=== PATIENT | female | born 1940 | race African-American/Black ===

== ENCOUNTER 2019-06-09 12:06 | Inpatient (IN) | payer OTHER ==
[~2019-06-09] VITALS: Ht 162.6 cm; Wt 83.9 kg
[~2019-06-09 12:06] MED LIST: ALLO100T PO; AMLO5TAB4 PO; ATOR80TA PO; CHOL20004 PO; CLON0.1T PO; CLOP75TA4 PO; COR25 PO; FURO-151 PO; LEVO75TA PO; LINA5TAB PO; LOSA100T32 PO; MECL-109 PO; METF-416 PO; NITR0.4T49 SL; OMEP20TA2 PO; POTA20TA12 PO
[2019-06-09] MEDS ORDERED: ASPIRIN 81MG TABLET PO ONE (16:15)
[2019-06-09 16:57] LABS: CHLORIDE 103 mEq/L (98-107)
[2019-06-09 16:58] LABS: BASOPHILS % 1.4 % (0.0-2.0); EOSINOPHILS % 1.8 % (0.0-5.0); HEMATOCRIT. 37.2 % (36.0-48.0); HEMOGLOBIN. 12.3 g/dL (12.0-16.0); LYMPHOCYTES % 25.2 % (20.0-50.0); MEAN CORPUSCULAR HEMOGLOBIN 28.5 pg (28.0-32.0); MEAN CORPUSCULAR VOLUME 86.1 fL (81.0-99.0); MEAN PLATELET VOLUME 7.9 fl (7.4-10.4); MONOCYTES % 9.2 % (2.0-8.0); NEUTROPHILS % 62.4 % (40.0-76.0); PLATELET 220 x1000/uL (130-400); RED BLOOD CELL COUNT 4.31 mill/uL (4.2-5.4); RED CELL DISTRIBUTION WIDTH 26.6 % (11.6-14.6)
[2019-06-09 17:01] LABS: D-DIMER 0.95 mg/L FEU (<0.50); PARTIAL THROMBOPLASTIN TIME 28.9 sec (23.4-31.0); PROTHROMBIN TIME 10.7 sec (9.6-11.0)
[2019-06-09 17:51] LABS: PLATELET ESTIMATE NORMAL
[2019-06-10] VITALS (8 sets, daily range): BP systolic 133–163; BP diastolic 62–95
[2019-06-10] MEDS ORDERED: DEXTROSE 50% WATER 50ML SYRINGE IV PRN (00:30)
[2019-06-10] MEDS ORDERED: ALPRAZOLAM 0.25 MG TABLET PO PRN (00:45)
[2019-06-10] MEDS ORDERED: NITROGLYCERIN 0.4MG TABLET SL SL PRN (00:45)
[2019-06-10] MEDS ORDERED: MECLIZINE 25MG TABLET PO PRN (00:45)
[2019-06-10] MEDS ORDERED: OMEP20CA5 PO (00:49)
[2019-06-10] MEDS ORDERED: GLIM2TAB2 PO (00:49)
[2019-06-10] MEDS ORDERED: ALPR-339 PO (00:49)
[2019-06-10 03:09] LABS: CREATINE KINASE 184 IU/L (26-192)
[2019-06-10] MEDS: ACETAMINOPHEN 325MG TABLET PO PRN ×2 (05:51→20:20)
[2019-06-10] MEDS: INSULIN LISPRO 100 UNITS/ML SUBCUT SCH ×4 (06:28→20:21)
[2019-06-10] MEDS: BLOOD SUGAR DIAGNOSTIC STRIP TEST SCH ×4 (06:28→20:21)
[2019-06-10] MEDS: OMEPRAZOLE 20MG CAPSULE EXTENDED RELEASE PO SCH (06:28)
[2019-06-10] MEDS: LEVOTHYROXINE SODIUM 88MCG TABLET PO SCH (06:28)
[2019-06-10] MEDS ORDERED: CLOPIDOGREL 75MG TABLET PO SCH (09:00)
[2019-06-10] MEDS: GLIMEPIRIDE 2MG TABLET PO SCH (09:16)
[2019-06-10] MEDS: FUROSEMIDE 40MG TABLET PO SCH ×2 (09:16→17:30)
[2019-06-10] MEDS: CLOPIDOGREL 75MG TABLET PO SCH (09:16)
[2019-06-10] MEDS: POTASSIUM CHLORIDE 20MEQ TABLET SR PO SCH (09:16)
[2019-06-10] MEDS: AMLODIPINE 5MG TABLET PO SCH (09:17)
[2019-06-10] MEDS: LINAGLIPTIN 5MG TABLET PO SCH (09:17)
[2019-06-10] MEDS: CARVEDILOL 12.5MG TABLET PO SCH ×2 (09:17→20:19)
[2019-06-10] MEDS: ALLOPURINOL 100 MG TABLET PO SCH ×2 (09:17→17:30)
[2019-06-10 10:36] LABS: BASOPHILS % 0.8 % (0.0-2.0); EOSINOPHILS % 2.3 % (0.0-5.0); HEMATOCRIT. 36.9 % (36.0-48.0); HEMOGLOBIN. 12.1 g/dL (12.0-16.0); LYMPHOCYTES % 27.2 % (20.0-50.0); MEAN CORPUSCULAR HEMOGLOBIN 28.3 pg (28.0-32.0); MEAN CORPUSCULAR VOLUME 86.4 fL (81.0-99.0); NEUTROPHILS % 59.7 % (40.0-76.0); PLATELET 215 x1000/uL (130-400); RED BLOOD CELL COUNT 4.27 mill/uL (4.2-5.4); RED CELL DISTRIBUTION WIDTH 27.2 % (11.6-14.6)
[2019-06-10 11:35] LABS: T4 FREE 1.32 ng/dL (0.76-1.46)
[2019-06-10 11:44] LABS: CREATINE KINASE MB FRACTION 2.4 ng/mL (0.5-3.6)
[2019-06-10 12:32] LABS: CREATINE KINASE 261 IU/L (26-192)
[2019-06-10] MEDS: SODIUM CHLORIDE 0.45% 1,000 ML IV SCH (13:15)
[2019-06-10] MEDS ORDERED: CLONIDINE 0.1MG TABLET PO PRN (14:15)
[2019-06-10] MEDS ORDERED: ATORVASTATIN CALCIUM 40MG TABLET PO SCH (21:00)
[2019-06-11] VITALS: BP 115/61
[2019-06-11 04:00] VITALS: BP 146/64
[2019-06-11] MEDS: INSULIN LISPRO 100 UNITS/ML SUBCUT SCH ×3 (06:15→17:40)
[2019-06-11] MEDS: BLOOD SUGAR DIAGNOSTIC STRIP TEST SCH ×3 (06:15→17:10)
[2019-06-11] MEDS: OMEPRAZOLE 20MG CAPSULE EXTENDED RELEASE PO SCH (06:45)
[2019-06-11] MEDS: LEVOTHYROXINE SODIUM 88MCG TABLET PO SCH (06:45)
[2019-06-11 06:54] LABS: BASOPHILS % 1.2 % (0.0-2.0); EOSINOPHILS % 1.9 % (0.0-5.0); HEMATOCRIT. 34.5 % (36.0-48.0); HEMOGLOBIN. 11.4 g/dL (12.0-16.0); LYMPHOCYTES % 27.6 % (20.0-50.0); MEAN CORPUSCULAR HEMOGLOBIN 28.6 pg (28.0-32.0); MEAN CORPUSCULAR VOLUME 86.7 fL (81.0-99.0); MEAN PLATELET VOLUME 7.6 fl (7.4-10.4); MONOCYTES % 12.9 % (2.0-8.0); NEUTROPHILS % 56.4 % (40.0-76.0); PLATELET 191 x1000/uL (130-400); RED BLOOD CELL COUNT 3.98 mill/uL (4.2-5.4)
[2019-06-11 07:08] LABS: CHLORIDE 108 mEq/L (98-107)
[2019-06-11 07:41] LABS: CREATINE KINASE 240 IU/L (26-192); CREATINE KINASE MB FRACTION 1.8 ng/mL (0.5-3.6); HDL CHOLESTEROL 45 mg/dL (40-59)
[2019-06-11 07:43] LABS: LDL CHOLESTEROL 115 mg/dL (5-100)
[2019-06-11 08:00] VITALS: BP 135/63
[2019-06-11] MEDS: GLIMEPIRIDE 2MG TABLET PO SCH (08:30)
[2019-06-11] MEDS ORDERED: ASPIRIN 81MG EC TABLET PO SCH (09:00)
[2019-06-11] MEDS: ALLOPURINOL 100 MG TABLET PO SCH ×2 (09:04→16:51)
[2019-06-11] MEDS: FUROSEMIDE 40MG TABLET PO SCH ×2 (09:06→16:51)
[2019-06-11] MEDS: POTASSIUM CHLORIDE 20MEQ TABLET SR PO SCH (09:06)
[2019-06-11] MEDS: CLOPIDOGREL 75MG TABLET PO SCH (09:06)
[2019-06-11] MEDS: CARVEDILOL 12.5MG TABLET PO SCH (09:06)
[2019-06-11] MEDS: AMLODIPINE 5MG TABLET PO SCH (09:07)
[2019-06-11] MEDS: LINAGLIPTIN 5MG TABLET PO SCH (09:07)
[2019-06-11] MEDS: SODIUM CHLORIDE 0.45% 1,000 ML IV SCH (13:28)
[2019-06-11 16:00] VITALS: BP 128/63
[2019-06-11 17:23] VITALS: BP 128/63
[2019-06-12] MEDS ORDERED: FAMOTIDINE 20MG TABLET PO SCH (07:10)
== END 2019-06-11 18:05 | disposition home or self-care (01) | DRG 206 ==
LOC: ER 12:06 → 8WST 19:12 → ENRESERV 22:09 → 8WST 23:45
PROVIDERS: ADMIT Internal Medicine; ATTEND Internal Medicine
DX: M94.0 Chondrocostal junction syndrome [Tietze] (principal); I42.0 Dilated cardiomyopathy; N17.9 Acute kidney failure, unspecified; I25.10 Atherosclerotic heart disease of native coronary artery without angina pectoris; E11.22 Type 2 diabetes mellitus with diabetic chronic kidney disease; I12.9 Hypertensive chronic kidney disease with stage 1 through stage 4 chronic kidney disease, or unspecified chronic kidney disease; N18.9 Chronic kidney disease, unspecified; E78.00 Pure hypercholesterolemia, unspecified; M10.9 Gout, unspecified; K21.9 Gastro-esophageal reflux disease without esophagitis; E03.9 Hypothyroidism, unspecified; E78.5 Hyperlipidemia, unspecified; I25.5 Ischemic cardiomyopathy; Z79.899 Other long term (current) drug therapy; Z95.810 Presence of automatic (implantable) cardiac defibrillator; Z79.84 Long term (current) use of oral hypoglycemic drugs
CPT/HCPCS: 36415; 71045; 78582; 80048; 80061; 82550; 82553; 82962; 83735; 83880; 84439; 84443; 84484; 85379; 93005; 93306; 93970; 99285; A9558; J1815

== ENCOUNTER 2021-12-07 04:58 | Inpatient (IN) | payer OTHER ==
[~2021-12-07] VITALS: Ht 162.6 cm; Wt 78.9 kg
[~2021-12-07 04:58] MED LIST changes: +ALPR-339 PO; +CLOP-31 PO; -CLOP75TA4 PO; +GLIM2TAB30 PO; -MECL-109 PO; +MECL-159 PO; +OMEP20CA14 PO
[2021-12-07 06:24] LABS: BASOPHILS % 0.6 % (0.0-2.0); EOSINOPHILS % 0.5 % (0.0-5.0); HEMATOCRIT. 35.4 % (36.0-48.0); HEMOGLOBIN. 11.9 g/dL (12.0-16.0); LYMPHOCYTES % 13.1 % (20.0-50.0); MEAN CORPUSCULAR HEMOGLOBIN 31.6 pg (28.0-32.0); MEAN CORPUSCULAR VOLUME 94.4 fL (81.0-99.0); MEAN PLATELET VOLUME 8.1 fl (7.4-10.4); MONOCYTES % 13.2 % (2.0-8.0); NEUTROPHILS % 72.6 % (40.0-76.0); PLATELET 186 x1000/uL (130-400); RED BLOOD CELL COUNT 3.75 mill/uL (4.2-5.4); RED CELL DISTRIBUTION WIDTH 15.1 % (11.6-14.6)
[2021-12-07 08:06] LABS: CHLORIDE 109 mEq/L (98-107)
[2021-12-07 08:43] LABS: CLARITY URINE CLEAR (CLEAR); COLOR URINE YELLOW (YELLOW); KETONES URINE TRACE (NEGATIVE); LEUKOCYTE ESTERASE URINE NEGATIVE (NEGATIVE); NITRITE URINE NEGATIVE (NEGATIVE); OCCULT BLOOD URINE 2+ (NEGATIVE); PROTEIN URINE 3+ (NEGATIVE); SPECIFIC GRAVITY URINE 1.032 (1.005-1.030)
[2021-12-07] MEDS ORDERED: ENOXAPARIN 60MG/0.6ML SYR SUBCUT ONE (09:15)
[2021-12-07] MEDS ORDERED: ASPIRIN 325MG EC TABLET PO ONE (09:15)
[2021-12-07 15:10] VITALS: BP 154/62
[2021-12-07 15:13] VITALS: BP 154/62
[2021-12-07] MEDS ORDERED: ENOXAPARIN 40MG/0.4ML SYR SUBCUT SCH (16:00)
[2021-12-07] MEDS ORDERED: ACETAMINOPHEN 325MG TABLET PO PRN (16:00)
[2021-12-07] MEDS ORDERED: LEVOFLOXACIN 500MG PREMIX 100 ML IV SCH (16:00)
[2021-12-07] MEDS ORDERED: LEVOFLOXACIN 750MG PREMIX 150 ML IV NR (17:00)
[2021-12-07] MEDS: PREDNISONE 20MG TABLET PO SCH (18:17)
[2021-12-07] MEDS: ENOXAPARIN 30MG/0.3ML SYR SUBCUT SCH (18:19)
[2021-12-07 20:00] VITALS: BP 167/75
[2021-12-07] MEDS ORDERED: CLONIDINE 0.1MG TABLET PO PRN (20:45)
[2021-12-07] MEDS: IPRATROPIUM/ALBUTEROL 0.5-3(2.5)MG/3ML NEB HHN PRN (21:31)
[2021-12-08] VITALS: BP 161/70
[2021-12-08] MEDS ORDERED: CLONIDINE 0.1MG TABLET PO SCH (01:30)
[2021-12-08] MEDS ORDERED: CLONIDINE 0.1MG TABLET PO PRN (02:45)
[2021-12-08 03:57] VITALS: BP 141/61
[2021-12-08 07:41] LABS: HEMATOCRIT. 31.5 % (36.0-48.0); HEMOGLOBIN. 10.6 g/dL (12.0-16.0); MEAN CORPUSCULAR HEMOGLOBIN 31.9 pg (28.0-32.0); MEAN CORPUSCULAR VOLUME 94.8 fL (81.0-99.0); MEAN PLATELET VOLUME 8.3 fl (7.4-10.4); PLATELET 186 x1000/uL (130-400); RED BLOOD CELL COUNT 3.32 mill/uL (4.2-5.4); RED CELL DISTRIBUTION WIDTH 14.6 % (11.6-14.6)
[2021-12-08 08:00] VITALS: BP 154/56
[2021-12-08] MEDS ORDERED: DEXTROSE 50% WATER 50ML SYRINGE IV PRN (08:45)
[2021-12-08] MEDS: CLOPIDOGREL 75MG TABLET PO SCH (09:44)
[2021-12-08] MEDS: PREDNISONE 20MG TABLET PO SCH (09:44)
[2021-12-08] MEDS: IPRATROPIUM/ALBUTEROL 0.5-3(2.5)MG/3ML NEB HHN PRN (10:00)
[2021-12-08 12:00] VITALS: BP 131/59
[2021-12-08] MEDS: BLOOD SUGAR DIAGNOSTIC STRIP TEST SCH ×3 (12:17→20:27)
[2021-12-08] MEDS: FUROSEMIDE 40MG/4ML VIAL IVP SCH (12:28)
[2021-12-08] MEDS: INSULIN LISPRO 100 UNITS/ML SUBCUT SCH ×3 (12:38→20:27)
[2021-12-08] MEDS ORDERED: GUAIFENESIN 200MG/10ML SUGAR FREE UDC PO PRN (14:30)
[2021-12-08 16:00] VITALS: BP 147/61
[2021-12-08] MEDS: ENOXAPARIN 30MG/0.3ML SYR SUBCUT SCH (17:38)
[2021-12-08 20:00] VITALS: BP 163/72
[2021-12-08] MEDS: CARVEDILOL 12.5MG TABLET PO SCH (20:26)
[2021-12-08] MEDS ORDERED: ATORVASTATIN CALCIUM 40MG TABLET PO SCH (21:00)
[2021-12-09] VITALS: BP 127/61
[2021-12-09] MEDS: IPRATROPIUM/ALBUTEROL 0.5-3(2.5)MG/3ML NEB HHN PRN (00:49)
[2021-12-09 04:00] VITALS: BP 130/52
[2021-12-09] MEDS: BLOOD SUGAR DIAGNOSTIC STRIP TEST SCH ×3 (06:24→17:32)
[2021-12-09 08:12] VITALS: BP 148/60
[2021-12-09] MEDS: INSULIN LISPRO 100 UNITS/ML SUBCUT SCH ×3 (08:32→17:38)
[2021-12-09] MEDS: CLOPIDOGREL 75MG TABLET PO SCH (08:33)
[2021-12-09] MEDS: FUROSEMIDE 40MG/4ML VIAL IVP SCH (08:33)
[2021-12-09] MEDS: PREDNISONE 20MG TABLET PO SCH (08:34)
[2021-12-09] MEDS: CARVEDILOL 12.5MG TABLET PO SCH (08:39)
[2021-12-09] MEDS ORDERED: AMLODIPINE 5MG TABLET PO SCH (09:00)
[2021-12-09] MEDS ORDERED: LEVOFLOXACIN 750MG PREMIX 150 ML IV SCH (11:00)
[2021-12-09 12:10] VITALS: BP 128/68
[2021-12-09 14:42] LABS: PLATELET ESTIMATE NORMAL
[2021-12-09 16:30] VITALS: BP 148/66
[2021-12-09] MEDS: ENOXAPARIN 30MG/0.3ML SYR SUBCUT SCH (17:32)
[2021-12-09 18:01] VITALS: BP 148/66
[2021-12-09] MEDS ORDERED: P20 MT (18:10)
[2021-12-09] MEDS ORDERED: LEVO500T89 MT (18:10)
[2021-12-10] MEDS ORDERED: ERGOCALCIFEROL 50000UNITS CAPSULE PO SCH (09:00)
== END 2021-12-09 19:00 | disposition home or self-care (01) | DRG 193 ==
LOC: ER 04:58 → 6WST 09:09 → EDBEDREQ 10:01 → ENRESERV 12:29
PROVIDERS: ADMIT Internal Medicine; ATTEND Internal Medicine
DX: J18.9 Pneumonia, unspecified organism (principal); I50.23 Acute on chronic systolic (congestive) heart failure; I13.0 Hypertensive heart and chronic kidney disease with heart failure and stage 1 through stage 4 chronic kidney disease, or unspecified chronic kidney disease; I42.0 Dilated cardiomyopathy; E11.22 Type 2 diabetes mellitus with diabetic chronic kidney disease; I25.10 Atherosclerotic heart disease of native coronary artery without angina pectoris; E03.9 Hypothyroidism, unspecified; N18.9 Chronic kidney disease, unspecified; D64.9 Anemia, unspecified; E78.5 Hyperlipidemia, unspecified; R06.03 Acute respiratory distress; K21.9 Gastro-esophageal reflux disease without esophagitis; I25.5 Ischemic cardiomyopathy; I27.20 Pulmonary hypertension, unspecified; J40 Bronchitis, not specified as acute or chronic; Z79.84 Long term (current) use of oral hypoglycemic drugs; Z79.899 Other long term (current) drug therapy; Z95.810 Presence of automatic (implantable) cardiac defibrillator; I25.2 Old myocardial infarction
CPT/HCPCS: 36415; 71045; 80048; 80053; 81003; 82962; 83036; 83735; 83880; 84443; 84484; 85025; 93005; 93306; 93880; 93970; 94640; 99291; J1650; J1815; J1940; J1956; J7512

== ENCOUNTER 2023-03-18 11:55 | Emergency (ER) | payer MEDICARE, OTHER ==
[~2023-03-18] VITALS: Ht 162.6 cm; Wt 58.0 kg
[~2023-03-18 11:55] MED LIST changes: +LEVO-65 MT; -LOSA100T32 PO; +LOSA100T33 PO; -OMEP20TA2 PO; +OMEP20TA23 PO; +P20 MT; +POTA-194 PO; -POTA20TA12 PO
[2023-03-18 12:05] VITALS: BP 146/72; PULSE 63; RESP 20; TEMP 98.8; O2SAT 97
[2023-03-18] MEDS ORDERED: LIDO700A15 TP (13:12)
[2023-03-18] MEDS ORDERED: NAPR-1176 MT (13:12)
== END 2023-03-18 15:11 | disposition home or self-care (01) ==
LOC: ER 11:55
DX: M54.41 Lumbago with sciatica, right side (principal); I11.0 Hypertensive heart disease with heart failure; I50.9 Heart failure, unspecified; E11.9 Type 2 diabetes mellitus without complications; Z90.710 Acquired absence of both cervix and uterus; Z79.899 Other long term (current) drug therapy
CPT/HCPCS: 99283

== ENCOUNTER 2023-04-07 00:50 | Emergency (ER) | payer OTHER ==
[~2023-04-07] VITALS: Ht 170.2 cm; Wt 65.0 kg
[~2023-04-07 00:50] MED LIST changes: +LIDO700A15 TP; +NAPR-1176 MT
[2023-04-07 00:56] VITALS: O2SAT 98
[2023-04-07] MEDS ORDERED: ACETAMINOPHEN 325MG TABLET PO ONE (01:00)
[2023-04-07] MEDS ORDERED: ONDANSETRON HCL 4MG/2ML INJ IV ONE (01:00)
[2023-04-07] MEDS ORDERED: MECLIZINE 25MG TABLET PO ONE (01:00)
[2023-04-07 01:18] LABS: CHLORIDE 106 mEq/L (98-107); INDEX HEMOLYSI 1 (1-3); INDEX ICTERIC 1 (1-4); INDEX LIPEMIC 1 (1-3); POTASSIUM 3.5 mEq/L (3.5-5.1); SODIUM 137 mEq/L (136-145)
[2023-04-07 01:34] LABS: ALANINE AMINOTRANSFERASE 60 IU/L (13-61); ALBUMIN 3.6 g/dL (3.4-5.0); ASPARTATE AMINOTRANSFERASE 33 IU/L (15-37); BILIRUBIN TOTAL 0.4 mg/dL (0.1-1.0); CALCIUM 9.5 mg/dL (8.5-10.1); CARBON DIOXIDE 27 mEq/L (21-32); CREATININE 1.6 mg/dL (0.6-1.3); ETHANOL BLOOD < 10 mg/dL (-10); GLUCOSE 282 mg/dL (70-105); NT PRO B-TYPE NATRIURETIC PEP 2281 pg/mL (5-125); PROTEIN TOTAL 7.8 g/dL (6.0-8.3); UREA NITROGEN BLOOD 22 mg/dL (7-21)
[2023-04-07 01:35] LABS: BASOPHILS % 0.7 % (0.0-2.0); EOSINOPHILS % 0.3 % (0.0-5.0); HEMATOCRIT. 39.8 % (36.0-48.0); HEMOGLOBIN. 13.1 g/dL (12.0-16.0); LYMPHOCYTES % 16.6 % (20.0-50.0); MEAN CORPUSCULAR HEMOGLOBIN 32.8 pg (28.0-32.0); MEAN CORPUSCULAR HGB CONC 32.8 g/dL (31.0-37.0); MEAN PLATELET VOLUME 7.6 fl (7.4-10.4); MONOCYTES % 6.5 % (2.0-8.0); NEUTROPHILS % 75.9 % (40.0-76.0); PLATELET 195 x1000/uL (130-400); RED BLOOD CELL COUNT 3.98 mill/uL (4.2-5.4); RED CELL DISTRIBUTION WIDTH 15.2 % (11.6-14.6); WHITE BLOOD COUNT 4.5 x1000/uL (4.5-11.0)
[2023-04-07] MEDS ORDERED: CLONIDINE 0.1MG TABLET PO ONE (02:30)
[2023-04-07] MEDS ORDERED: ONDA4TAB50 MT (06:01)
[2023-04-07] MEDS ORDERED: MECL-217 MT (06:01)
[2023-04-07 06:15] VITALS: BP 152/66; PULSE 65; RESP 12; TEMP 98.2
== END 2023-04-07 06:26 | disposition home or self-care (01) ==
LOC: ER 01:02
DX: R42 Dizziness and giddiness (principal); I11.0 Hypertensive heart disease with heart failure; I50.9 Heart failure, unspecified; E11.9 Type 2 diabetes mellitus without complications; E03.9 Hypothyroidism, unspecified; Z90.710 Acquired absence of both cervix and uterus; Z00.00 Encounter for general adult medical examination without abnormal findings; Z79.899 Other long term (current) drug therapy
CPT/HCPCS: 80053; 80320; 83880; 83690; 85025; 36415; 71045; 70450; 93005; 96374; 99285; J8597; J2405; G0480

== ENCOUNTER 2023-08-16 15:12 | Emergency (ER) | payer OTHER ==
[~2023-08-16] VITALS: Ht 167.6 cm; Wt 50.0 kg
[~2023-08-16 15:12] MED LIST changes: -MECL-159 PO; +MECL-217 MT; +MECL-299 PO; +ONDA4TAB50 MT
[2023-08-16] MEDS ORDERED: ONDANSETRON 4MG ODT PO ONE (15:30)
[2023-08-16] MEDS ORDERED: ACETAMINOPHEN 325MG TABLET PO ONE (15:30)
[2023-08-16 15:31] VITALS: O2SAT 100
[2023-08-16 16:10] LABS: HEMATOCRIT. 30.9 % (36.0-48.0); HEMOGLOBIN. 10.1 g/dL (12.0-16.0); MEAN CORPUSCULAR HEMOGLOBIN 31.8 pg (28.0-32.0); MEAN CORPUSCULAR HGB CONC 32.6 g/dL (31.0-37.0); MEAN CORPUSCULAR VOLUME 97.3 fL (81.0-99.0); MEAN PLATELET VOLUME 6.8 fl (7.4-10.4); PLATELET 436 x1000/uL (130-400); RED BLOOD CELL COUNT 3.18 mill/uL (4.2-5.4); RED CELL DISTRIBUTION WIDTH 15.5 % (11.6-14.6); WHITE BLOOD COUNT 9.7 x1000/uL (4.5-11.0)
[2023-08-16 16:17] LABS: DIFFERENTIAL COMMENT 1
[2023-08-16 16:25] LABS: ALANINE AMINOTRANSFERASE 141 IU/L (10-49); ALBUMIN 2.8 g/dL (3.2-4.8); ASPARTATE AMINOTRANSFERASE 133 IU/L (<34); BILIRUBIN TOTAL 1.5 mg/dL (0.1-1.0); CALCIUM 8.7 mg/dL (8.7-10.4); CARBON DIOXIDE 27 mEq/L (21-32); CHLORIDE 103 mEq/L (98-107); CREATININE 2.2 mg/dL (0.6-1.0); GLUCOSE 86 mg/dL (70-105); PROTEIN TOTAL 6.1 g/dL (6.0-8.3); SODIUM 137 mEq/L (136-145); UREA NITROGEN BLOOD 51 mg/dL (9-23)
[2023-08-16 19:02] LABS: ANISOCYTOSIS 1+; NUCLEATED RED BLOOD CELLS 1 /100 WBC; PLATELET ESTIMATE INCREASED
[2023-08-16] MEDS ORDERED: ONDA4TAB11 PO (20:35)
[2023-08-16 20:56] VITALS: BP 141/84; PULSE 92; RESP 16; TEMP 98.6
== END 2023-08-16 20:59 | disposition home or self-care (01) ==
LOC: ER 15:12
DX: R10.84 Generalized abdominal pain (principal); C25.9 Malignant neoplasm of pancreas, unspecified; I11.0 Hypertensive heart disease with heart failure; I50.9 Heart failure, unspecified; E11.9 Type 2 diabetes mellitus without complications; E03.9 Hypothyroidism, unspecified; I25.10 Atherosclerotic heart disease of native coronary artery without angina pectoris; Z90.710 Acquired absence of both cervix and uterus; Z95.0 Presence of cardiac pacemaker; Z95.1 Presence of aortocoronary bypass graft
CPT/HCPCS: 99284; 74176; 80053; 83605; 83690; 85025; 36415; Q0162